=== PATIENT | female | born 1980 | race African-American/Black ===

== ENCOUNTER 2017-10-31 20:10 | Emergency (ER) | payer SELFPAY ==
[2017-10-31] MEDS ORDERED: Ketorolac Tromethamine 60 MG/2 ML VIAL ONE (21:12)
== END 2017-10-31 21:34 | disposition home or self-care (01) ==
LOC: ERS 20:10
DX: K02.9 Dental caries, unspecified (principal); K03.81 Cracked tooth
CPT/HCPCS: 96372; J1885

== ENCOUNTER 2024-11-18 07:48 | Emergency (ER) | payer SELFPAY ==
[2024-11-18] MEDS ORDERED: predniSONE 20 MG TAB ONE (08:48)
[2024-11-18] MEDS ORDERED: Azithromycin 250 MG TAB ONE (08:48)
[2024-11-18] MEDS ORDERED: Ketorolac Tromethamine 30 MG (1 mL) VIAL ONE (08:48)
== END 2024-11-18 09:00 | disposition home or self-care (01) ==
LOC: ERS 07:48
DX: J01.90 Acute sinusitis, unspecified (principal); B96.89 Other specified bacterial agents as the cause of diseases classified elsewhere
CPT/HCPCS: 87428; 96372; 99283; J1885; J7512